=== PATIENT | male | born 1980 | race African-American/Black ===

== ENCOUNTER 2017-05-31 14:30 | Inpatient (IN) | payer OTHER ==
[2017-05-31 17:44] VITALS: BMI 31.8
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
[2017-05-31] MEDS ORDERED: MAGNESIUM HYDROX 2400MG/30ML ORAL SUSPENSION 30 ML CUP PO PRN (19:46)
[2017-05-31] MEDS ORDERED: ACETAMINOPHEN 325 MG TABLET (FP) PO PRN (19:46)
[2017-05-31] MEDS ORDERED: MAGNESIUM CITRATE 300 ML BOTTLE PO PRN (19:46)
[2017-05-31] MEDS ORDERED: chlordiazePOXIDE HCL 25 MG CAPSULE PO PRN (19:46)
[2017-05-31] MEDS ORDERED: MAG HYDROX/AL HYDROX/SIMETH 30 ML UNIT-DOSE CUP PO PRN (19:46)
[2017-05-31] MEDS ORDERED: guaiFENesin/D-METHORPHAN HB 10 ML UNIT-DOSE CUPS PO PRN (19:46)
[2017-05-31] MEDS ORDERED: hydrOXYzine PAMOATE 50 MG CAPSULE (FP) PO PRN (19:46)
[2017-05-31] MEDS ORDERED: P-EPHED 60MG/TRIPROLIDI 2.5MG TABLET PO PRN (19:46)
[2017-05-31] MEDS ORDERED: chlordiazePOXIDE HCL 25 MG CAPSULE PO ONE (19:46)
[2017-05-31] MEDS ORDERED: IBUPROFEN 400 MG TABLET (FP) PO PRN (19:46)
[2017-05-31] MEDS ORDERED: LOPERAMIDE HCL 2 MG CAPSULE PO PRN (19:46)
[2017-05-31] MEDS ORDERED: MENTHOL/PHENOL 1 EACH UD MM PRN (19:46)
[2017-05-31] MEDS ORDERED: ALBUTEROL SO4 18 GM HFA INHALER IH PRN (19:48)
[2017-05-31] MEDS ORDERED: ALBUTEROL SO4 2.5/IPRATROPIUM 0.5 INH SOL 3 ML VIAL.NEB. NEB PRN (19:49)
[2017-05-31] MEDS: MELATONIN 5 MG TABLETS PO SCH (22:27)
[2017-05-31] MEDS: THIAMINE HCL 100 MG TABLET (FP) PO SCH (22:27)
[2017-05-31] MEDS: chlordiazePOXIDE HCL 25 MG CAPSULE PO SCH (22:28)
[2017-06-01 01:48] LABS: URINE APPEARANCE CLEAR; URINE BILIRUBIN NEGATIVE (NEGATIVE); URINE BLOOD 1+ (NEGATIVE); URINE COLOR LTYELLOW; URINE GLUCOSE (UA) NEGATIVE (NEGATIVE); URINE KETONE NEGATIVE (NEGATIVE); URINE LEUK ESTERASE TRACE (NEGATIVE); URINE NITRITE NEGATIVE (NEGATIVE); URINE PROTEIN NEGATIVE (NEGATIVE); URINE UROBILINOGEN NEGATIVE mg/dL (0.2-1.0)
[2017-06-01 02:03] LABS: EPI CELLS RARE /HPF (FEW); URINE HYALINE CAST 2 /lpf; URINE MUCUS RARE
[2017-06-01] MEDS: chlordiazePOXIDE HCL 25 MG CAPSULE PO SCH ×4 (07:20→23:21)
--- NOTE | 2017-06-01 09:15 | CONSULT ---
[facility] Psychiatric Consult - Data Date of interview: 06/01/17 Admission source: [facility] Identifying data: This is 34 years old obese male, single, living with GF, unemployed, with psychiatric hospitalization history, with history od Cocaine, Alcohol and Nicotine dependence, seeking for detox. Substance Abuse History: - Smoking Cessation. Smoking history: Current every day smoker. Have you smoked in the past 12 months: Yes. Aproximately how many cigarettes per day: 30. Hx Chewing Tobacco Use: No. Initiated information on smoking cessation: Yes. 'Breaking Loose' booklet given: 05/31/17. - Substance & Tx. History. Hx Alcohol Use: Yes. Hx Substance Use: Yes. Substance Use Type : Alcohol, Cocaine. Hx Substance Use Treatment: Yes ([facility] 2016). - Substances Abused. Alcohol. Route: Oral. Frequency: Daily. Amount used: 2 PINTS VODKA. Age of first use: 17. Date of Last Use: 05/29/17. Crack. Route: Smoking. Frequency: Daily. Amount used: $50. Age of first use: 23. Date of Last Use: 05/30/17 Medical History: Obesity, Peptic Ulcer , Asthma, Nephrolitiasis history. Psychiatric History: Patient reports history of Schizoaffective disorder, Bipolar disorder with most recent psychiatric admission on 2 weeks ago at [facility] for safety, denies suicidal history, reports taking prior,to admission: Risperdal 2mg po bid. Seroquel 200mg po qhs. Zoloft 50mg poqd Physical/Sexual Abuse/Trauma History: Denies Additional Comment: Risperdal 2mg po bid. Seroquel 200mg po qhs. Zoloft 50mg poqd Mental Status Exam - Mental Status Exam Alert and Oriented to: Person Cognitive Function: Fair Patient Appearance: Unkempt Mood: Sad Affect: Flat Patient Behavior: Sedated Speech Pattern: Delayed Voice Loudness: Mildly Soft/Quiet Thought Process: Circumstantial Thought Disorder: Being Controlled Hallucinations: Denies Suicidal Ideation: Denies Homicidal Ideation: Denies Insight/Judgement: Fair Sleep: Difficulty falling asleep Appetite: Weight gain Muscle strength/Tone: Mild Hypotonicity Gait/Station: Shuffling Additional Comments: Risperdal 2mg po bid. Seroquel 200mg po qhs. Zoloft 50mg poqd Psychiatric Findings - Problem List ([place] 1, 2,3) (1) Drug-induced mood disorder Current Visit: Yes Status: Acute (2) Alcohol dependence with withdrawal Current Visit: Yes Status: Acute Qualifiers: Complication of substance-induced condition: uncomplicated Qualified Code(s ): F10.230 - Alcohol dependence with withdrawal, uncomplicated (3) Nicotine dependence Current Visit: Yes Status: Acute Qualifiers: Nicotine product type: cigarettes (4) Cocaine dependence Current Visit: Yes Status: Chronic (5) Schizoaffective disorder Current Visit: No Status: Acute - Initial Treatment Plan Initial Treatment Plan: Risperdal 2mg po bid. Seroquel 200mg po qhs. Zoloft 50mg poqd
--- NOTE | 2017-06-01 09:59 | EKG ---
Test Reason : Blood Pressure : / mmHG Vent. Rate : 067 BPM Atrial Rate : 067 BPM P-R Int : 132 ms QRS Dur : 092 ms QT Int : 396 ms P-R-T Axes : 022 051 032 degrees QTc Int : 418 ms NORMAL SINUS RHYTHM MINIMAL VOLTAGE CRITERIA FOR LVH, MAY BE NORMAL VARIANT NONSPECIFIC ST ABNORMALITY ABNORMAL ECG NO PREVIOUS ECGS AVAILABLE Confirmed by EMILY LINDSEY MD ([id number]) on 06/01/2017 9:58:33 AM Referred By: Confirmed By:EMILY LINDSEY MD
--- NOTE | 2017-06-01 10:02 | PN ---
[facility] CIWA - CIWA Score Nausea/Vomitin-Mild Nausea/No Vomiting Muscle Tremors: 4-Moderate,w/Arms Extend Anxiety: 3 Agitation: 3 Paroxysmal Sweats: 1-Minimal Palms Moist Orientation: 0-Oriented Tacttile Disturbances: 1-Very Mild Itch/Numbness Auditory Disturbances: 0-None Visual Disturbances: 0-None Headache: 0-None Present CIWA-Ar Total Score: 13 [facility] Progress Note (SOAP) Subjective: sweat tremor restlessness anxiety sleeplessness irritable Objective: 06/01/17 10:01 Vital Signs Temperature 97.9 F 06/01/17 06:00 Pulse Rate 92 H 06/01/17 06:00 Respiratory Rate 18 06/01/17 06:00 Blood Pressure 119/70 06/01/17 06:00 O2 Sat by Pulse Oximetry (%) Laboratory Last Values Urine Color Ltyellow 05/31/17 22:43 Urine Appearance Clear 05/31/17 22:43 Urine pH 7.0 (5.0-8.0) 05/31/17 22:43 Ur Specific [place] 1.009 (1.001-1.035) 05/31/17 22:43 Urine Protein Negative (NEGATIVE) 05/31/17 22:43 Urine Glucose (UA) Negative (NEGATIVE) 05/31/17 22:43 Urine Ketones Negative (NEGATIVE) 05/31/17 22:43 Urine Blood 1+ (NEGATIVE) H 05/31/17 22:43 Urine Nitrite Negative (NEGATIVE) 05/31/17 22:43 Urine Bilirubin Negative (NEGATIVE) 05/31/17 22:43 Urine Urobilinogen Negative mg/dL (0.2-1.0) 05/31/17 22:43 Ur Leukocyte Esterase Trace (NEGATIVE) 05/31/17 22:43 Urine WBC (Auto) 1 /hpf (3-5) 05/31/17 22:43 Urine RBC (Auto) 3 /hpf (0-3) 05/31/17 22:43 Ur Epithelial Cells Rare /HPF (FEW) 05/31/17 22:43 Hyaline Casts 2 /lpf 05/31/17 22:43 Urine Mucus Rare 05/31/17 22:43 lab noted Assessment: 06/01/17 10:02 withdrawal sx Plan: continue detox
[2017-06-01 10:17] LABS: HEMATOCRIT 39.9 % (35.4-49); HEMOGLOBIN 13.2 GM/dL (11.7-16.9); MEAN CELL VOLUME 87.9 fl (80-96); MEAN PLT VOLUME 7.7 fl (7.5-11.1); PLATELET COUNT 306 K/MM3 (134-434); RBC 4.54 M/mm3 (4.00-5.60); RDW 17.2 % (11.9-15.9); WHITE BLOOD COUNT 5.2 K/mm3 (4.0-10.0)
[2017-06-01] MEDS: PRENATAL VITAMINS W/ FOLIC ACID TABLET (FP) PO SCH (10:31)
[2017-06-01] MEDS: SERTRALINE HCL 50 MG TABLET (FP) PO SCH (10:31)
[2017-06-01] MEDS: PANTOPRAZOLE 40 MG TABLET (FP) PO SCH (10:31)
[2017-06-01] MEDS: risperiDONE 2 MG TABLET PO SCH ×2 (10:31→23:22)
[2017-06-01] MEDS: NICOTINE 21 MG/24 HOURS TOPICAL PATCH TD SCH (10:32)
[2017-06-01 12:42] LABS: ALBUMIN 3.3 g/dl (3.4-5.0); ANION GAP 12 (8-16); BLOOD UREA NITROGEN 14 mg/dL (7-18); CALCIUM 8.8 mg/dL (8.5-10.1); CHLORIDE 107 mmol/L (98-107); CO2 24 mmol/L (21-32); CREATININE 1.2 mg/dL (0.7-1.3); GLUCOSE,RANDOM 82 mg/dL (74-106); POTASSIUM 4.4 mmol/L (3.5-5.1); SGOT/AST 16 U/L (15-37); SGPT/ALT 17 U/L (12-78); SODIUM 143 mmol/L (136-145)
[2017-06-01 12:44] LABS: ALK PHOS 83 U/L (45-117); BILIRUBIN,TOTAL 0.4 mg/dL (0.2-1.0); TOT PROT 6.8 g/dl (6.4-8.2)
[2017-06-01] MEDS: MELATONIN 5 MG TABLETS PO SCH (23:21)
[2017-06-01] MEDS: QUEtiapine FUMARATE 200 MG TABLET PO SCH (23:22)
[2017-06-01] MEDS: THIAMINE HCL 100 MG TABLET (FP) PO SCH (23:23)
[2017-06-02] MEDS: chlordiazePOXIDE HCL 25 MG CAPSULE PO SCH ×3 (05:55→17:23)
--- NOTE | 2017-06-02 10:30 | PN ---
[facility] CIWA - CIWA Score Nausea/Vomitin-Mild Nausea/No Vomiting Muscle Tremors: 4-Moderate,w/Arms Extend Anxiety: 3 Agitation: 3 Paroxysmal Sweats: 1-Minimal Palms Moist Orientation: 0-Oriented Tacttile Disturbances: 0-None Auditory Disturbances: 1-Very Mild Visual Disturbances: 0-None Headache: 0-None Present CIWA-Ar Total Score: 13 S Progress Note (SOAP) Subjective: gji distress sweat tremor mild noise heard not threaten, anxiety restlessness trouble to fall a sleep Objective: 06/02/17 10:29 Vital Signs Temperature 98.1 F 06/02/17 06:43 Pulse Rate 100 H 06/02/17 06:43 Respiratory Rate 18 06/02/17 06:43 Blood Pressure 118/87 06/02/17 06:43 O2 Sat by Pulse Oximetry (%) Laboratory Last Values WBC 5.2 K/mm3 (4.0-10.0) 06/01/17 07:00 RBC 4.54 M/mm3 (4.00-5.60) 06/01/17 07:00 Hgb 13.2 GM/dL (11.7-16.9) 06/01/17 07:00 Hct 39.9 % (35.4-49) 06/01/17 07:00 MCV 87.9 fl (80-96) 06/01/17 07:00 MCH 29.0 pg (25.7-33.7) 06/01/17 07:00 MCHC 33.0 g/dl (32.0-35.9) 06/01/17 07:00 RDW 17.2 % (11.9-15.9) H 06/01/17 07:00 Plt Count 306 K/MM3 (134-434) D 06/01/17 07:00 MPV 7.7 fl (7.5-11.1) D 06/01/17 07:00 Sodium 143 mmol/L (136-145) 06/01/17 07:00 Potassium 4.4 mmol/L (3.5-5.1) D 06/01/17 07:00 Chloride 107 mmol/L (98-107) 06/01/17 07:00 Carbon Dioxide 24 mmol/L (21-32) 06/01/17 07:00 Anion Gap 12 (8-16) 06/01/17 07:00 BUN 14 mg/dL (7-18) D 06/01/17 07:00 Creatinine 1.2 mg/dL (0.7-1.3) 06/01/17 07:00 Creat Clearance w eGFR > 60 (>60) 06/01/17 07:00 Random Glucose 82 mg/dL (74-106) D 06/01/17 07:00 Calcium 8.8 mg/dL (8.5-10.1) 06/01/17 07:00 Total Bilirubin 0.4 mg/dL (0.2-1.0) D 06/01/17 07:00 AST 16 U/L (15-37) 06/01/17 07:00 ALT 17 U/L (12-78) 06/01/17 07:00 Alkaline Phosphatase 83 U/L (45-117) D 06/01/17 07:00 Total Protein 6.8 g/dl (6.4-8.2) 06/01/17 07:00 Albumin 3.3 g/dl (3.4-5.0) L 06/01/17 07:00 Urine Color Ltyellow 05/31/17 22:43 Urine Appearance Clear 05/31/17 22:43 Urine pH 7.0 (5.0-8.0) 05/31/17 22:43 Ur Specific [place] 1.009 (1.001-1.035) 05/31/17 22:43 Urine Protein Negative (NEGATIVE) 05/31/17 22:43 Urine Glucose (UA) Negative (NEGATIVE) 05/31/17 22:43 Urine Ketones Negative (NEGATIVE) 05/31/17 22:43 Urine Blood 1+ (NEGATIVE) H 05/31/17 22:43 Urine Nitrite Negative (NEGATIVE) 05/31/17 22:43 Urine Bilirubin Negative (NEGATIVE) 05/31/17 22:43 Urine Urobilinogen Negative mg/dL (0.2-1.0) 05/31/17 22:43 Ur Leukocyte Esterase Trace (NEGATIVE) 05/31/17 22:43 Urine WBC (Auto) 1 /hpf (3-5) 05/31/17 22:43 Urine RBC (Auto) 3 /hpf (0-3) 05/31/17 22:43 Ur Epithelial Cells Rare /HPF (FEW) 05/31/17 22:43 Hyaline Casts 2 /lpf 05/31/17 22:43 Urine Mucus Rare 05/31/17 22:43 RPR Titer Nonreactive (NONREACTIVE) 06/01/17 07:00 HIV 1&2 Antibody Screen Negative 06/01/17 07:00 HIV P24 Antigen Negative 06/01/17 07:00 lab noted Assessment: 06/02/17 10:30 withdrawal sx Plan: continue detox
[2017-06-02] MEDS: PRENATAL VITAMINS W/ FOLIC ACID TABLET (FP) PO SCH (10:58)
[2017-06-02] MEDS: SERTRALINE HCL 50 MG TABLET (FP) PO SCH (10:59)
[2017-06-02] MEDS: PANTOPRAZOLE 40 MG TABLET (FP) PO SCH (10:59)
[2017-06-02] MEDS: risperiDONE 2 MG TABLET PO SCH ×2 (10:59→22:42)
[2017-06-02] MEDS: NICOTINE 21 MG/24 HOURS TOPICAL PATCH TD SCH (10:59)
[2017-06-02] MEDS: THIAMINE HCL 100 MG TABLET (FP) PO SCH (22:42)
[2017-06-02] MEDS: chlordiazePOXIDE 5 MG CAPSULE PO SCH (22:43)
[2017-06-02] MEDS: QUEtiapine FUMARATE 200 MG TABLET PO SCH (22:43)
[2017-06-02] MEDS: MELATONIN 5 MG TABLETS PO SCH (23:13)
[2017-06-03] MEDS: chlordiazePOXIDE 5 MG CAPSULE PO SCH ×3 (06:43→17:13)
[2017-06-03] MEDS: PANTOPRAZOLE 40 MG TABLET (FP) PO SCH (11:29)
[2017-06-03] MEDS: PRENATAL VITAMINS W/ FOLIC ACID TABLET (FP) PO SCH (11:29)
[2017-06-03] MEDS: risperiDONE 2 MG TABLET PO SCH ×2 (11:30→22:30)
[2017-06-03] MEDS: SERTRALINE HCL 50 MG TABLET (FP) PO SCH (11:30)
[2017-06-03] MEDS: NICOTINE 21 MG/24 HOURS TOPICAL PATCH TD SCH (11:31)
--- NOTE | 2017-06-03 11:44 | PN ---
[facility] Progress Note (SOAP) Subjective: interrupted sleep, sweats Objective: 06/03/17 11:42 Vital Signs Temperature 98.3 F 06/03/17 09:42 Pulse Rate 55 L 06/03/17 09:42 Respiratory Rate 16 06/03/17 09:42 Blood Pressure 90/51 06/03/17 09:42 O2 Sat by Pulse Oximetry (%) Laboratory Tests 05/31/17 06/01/17 06/01/17 22:43 07:00 07:00 WBC 5.2 RBC 4.54 Hgb 13.2 Hct 39.9 MCV 87.9 MCH 29.0 MCHC 33.0 RDW 17.2 H Plt Count 306 D MPV 7.7 D Sodium Potassium Chloride Carbon Dioxide Anion Gap BUN Creatinine Creat Clearance w eGFR Random Glucose Calcium Total Bilirubin AST ALT Alkaline Phosphatase Total Protein Albumin Urine Color Ltyellow Urine Appearance Clear Urine pH 7.0 Ur Specific [place] 1.009 Urine Protein Negative Urine Glucose (UA) Negative Urine Ketones Negative Urine Blood 1+ H Urine Nitrite Negative Urine Bilirubin Negative Urine Urobilinogen Negative Ur Leukocyte Esterase Trace Urine WBC (Auto) 1 Urine RBC (Auto) 3 Ur Epithelial Cells Rare Hyaline Casts 2 Urine Mucus Rare RPR Titer HIV 1&2 Antibody Screen Negative HIV P24 Antigen Negative 06/01/17 06/01/17 07:00 07:00 WBC RBC Hgb Hct MCV MCH MCHC RDW Plt Count MPV Sodium 143 Potassium 4.4 D Chloride 107 Carbon Dioxide 24 Anion Gap 12 BUN 14 D Creatinine 1.2 Creat Clearance w eGFR > 60 Random Glucose 82 D Calcium 8.8 Total Bilirubin 0.4 D AST 16 ALT 17 Alkaline Phosphatase 83 D Total Protein 6.8 Albumin 3.3 L Urine Color Urine Appearance Urine pH Ur Specific [place] Urine Protein Urine Glucose (UA) Urine Ketones Urine Blood Urine Nitrite Urine Bilirubin Urine Urobilinogen Ur Leukocyte Esterase Urine WBC (Auto) Urine RBC (Auto) Ur Epithelial Cells Hyaline Casts Urine Mucus RPR Titer Nonreactive HIV 1&2 Antibody Screen HIV P24 Antigen pt aox3 in nad ambulating Assessment: 06/03/17 11:43 withdrawal sx's Plan: cont. detox increase fluids
[2017-06-03] MEDS: NICOTINE POLACRILEX 4 MG GUM BC PRN ×2 (18:45→20:02)
[2017-06-03] MEDS: chlordiazePOXIDE HCL 10 MG CAPSULE PO SCH (22:30)
[2017-06-03] MEDS: QUEtiapine FUMARATE 200 MG TABLET PO SCH (22:30)
[2017-06-03] MEDS: THIAMINE HCL 100 MG TABLET (FP) PO SCH (22:30)
[2017-06-03] MEDS: MELATONIN 5 MG TABLETS PO SCH (22:30)
[2017-06-04] MEDS: chlordiazePOXIDE HCL 10 MG CAPSULE PO SCH (07:19)
[2017-06-04] MEDS: NICOTINE POLACRILEX 4 MG GUM BC PRN (08:57)
[2017-06-04 09:59] VITALS: BP 131/75; PULSE 86; TEMP 98.8
--- NOTE | 2017-06-04 16:15 | PN ---
S Progress Note (SOAP) Subjective: feels okay no new complaint Objective: 06/04/17 16:13 A & O x 3 gait steady no acute distress noted Vital Signs Temperature 98.8 F 06/04/17 09:59 Pulse Rate 86 06/04/17 09:59 Respiratory Rate 16 06/04/17 09:59 Blood Pressure 131/75 06/04/17 09:59 O2 Sat by Pulse Oximetry (%) Assessment: 06/04/17 16:14 detox successfully completed Plan: for discharge
--- NOTE | 2017-06-04 16:19 | DS ---
[facility] Detox Discharge Summary Admission Date: 05/31/17 Discharge Date: 06/04/17 - History Pertinent Past History: peptic ulcer disease bronchial asthma - Physical Exam Results Vital Signs: Vital Signs Temperature 98.8 F 06/04/17 09:59 Pulse Rate 86 06/04/17 09:59 Respiratory Rate 16 06/04/17 09:59 Blood Pressure 131/75 06/04/17 09:59 O2 Sat by Pulse Oximetry (%) Pertinent Admission Physical Exam Findings: withdrawal sx - Treatment Hospital Course: Detox Protocol Followed, Detoxed Safely, Responded well, Discharged Condition Good ([facility]), Rehab Referral Accepted Patient has Accepted a Rehab Referral to: [facility] - Medication Discharge Medications: Ambulatory Orders Quetiapine Fumarate [Seroquel -] 200 mg PO HS #30 tablet 05/03/15 Quetiapine Fumarate [Seroquel -] 200 mg PO HS #30 tablet 06/01/17 Risperidone [Risperdal -] 2 mg PO BID #60 tablet 06/01/17 Sertraline HCl [Zoloft -] 50 mg PO DAILY #30 tablet 06/01/17 Albuterol Sulfate Inhaler - [Ventolin HFA Inhaler -] 2 puff IH Q4H PRN #1 inhaler 06/03/17 Pantoprazole Sodium [Protonix -] 40 mg PO DAILY #30 tablet.ec 06/03/17 Albuterol Sulfate Inhaler - [Ventolin HFA Inhaler -] 2 inh PO Q4H PRN #1 inhaler 06/04/17 Pantoprazole Sodium [Protonix -] 40 mg PO DAILY #30 tablet.ec 06/04/17 - Diagnosis (1) Alcohol dependence, uncomplicated Status: Acute (2) Cocaine dependence Status: Chronic (3) Nicotine dependence Status: Chronic Qualifiers: Nicotine product type: cigarettes (4) Obesity Status: Chronic Qualifiers: Obesity type: unspecified obesity type Body mass index: BMI 31.0-31.9 (5) Peptic ulcer disease Status: Chronic (6) depression Status: Chronic - AMA Did Patient Leave Against Medical Advice: No
== END 2017-06-04 11:18 | disposition home or self-care (01) | DRG 774 ==
LOC: YASAS 14:30 → Y6N 18:37
PROVIDERS: ADMIT Internal Medicine; ATTEND Internal Medicine
PROC: HZ2ZZZZ Detoxification Services for Substance Abuse Treatment (ICD-10-PCS; principal; 2017-05-31)
DX: F10.230 Alcohol dependence with withdrawal, uncomplicated (principal); F14.20 Cocaine dependence, uncomplicated; F17.210 Nicotine dependence, cigarettes, uncomplicated; F31.9 Bipolar disorder, unspecified; F41.9 Anxiety disorder, unspecified; F19.24 Other psychoactive substance dependence with psychoactive substance-induced mood disorder; F25.9 Schizoaffective disorder, unspecified; E66.9 Obesity, unspecified; Z68.31 Body mass index [BMI] 31.0-31.9, adult; Z87.440 Personal history of urinary (tract) infections; Z87.442 Personal history of urinary calculi; Z89.422 Acquired absence of other left toe(s); Z89.421 Acquired absence of other right toe(s)
CPT/HCPCS: 36415; 80053; 81003; 81015; 85027; 86593; 87389; 93005; 93010

== ENCOUNTER 2023-11-23 13:34 | Inpatient (IN) | payer OTHER ==
[2023-11-23] MEDS ORDERED: ALBUTEROL SO4 HFA INHALER IH PRN (14:35)
[2023-11-23] MEDS ORDERED: MAGNESIUM HYDROX 2400MG/30ML ORAL SUSPENSION 30 ML CUP PO PRN (14:46)
[2023-11-23] MEDS ORDERED: NICOTINE POLACRILEX 2 MG LOZENGE BC PRN (14:46)
[2023-11-23] MEDS ORDERED: BENZOCAINE/MENTHOL (CHLORASEPTIC ) LOZENGE MM PRN (14:46)
[2023-11-23] MEDS ORDERED: hydrOXYzine PAMOATE 25 MG CAPSULE (FP) PO PRN (14:46)
[2023-11-23] MEDS ORDERED: LOPERAMIDE HCL 2 MG CAPSULE PO PRN (14:46)
[2023-11-23] MEDS ORDERED: ACETAMINOPHEN 325 MG TABLET (FP) PO PRN (14:46)
[2023-11-23] MEDS ORDERED: BENZONATATE 200 MG CAPSULE PO PRN (14:46)
[2023-11-23] MEDS ORDERED: MAG HYDROX/AL HYDROX/SIMETH 30 ML UNIT-DOSE CUP PO PRN (14:46)
[2023-11-23] MEDS ORDERED: POLYETHYLENE GLYCOL (HEALTHYLAX) 3350 17 GM PACKET PO PRN (14:46)
[2023-11-23] MEDS ORDERED: guaiFENesin 600 MG TABLET.ER (FP) PO PRN (14:46)
[2023-11-23 15:21] VITALS: BMI 26.4
[2023-11-23] MEDS ORDERED: IBUPROFEN 600 MG TABLET (FP) PO ONE (17:22)
[2023-11-23] MEDS: IBUPROFEN 600 MG TABLET (FP) PO PRN (17:25)
[2023-11-23 18:10] VITALS: RESP 18
[2023-11-23] MEDS: TUBERCULIN PPD 5 TU/0.1ML SYRINGE (IN PATIENT USE ONLY) ID ONE (18:13)
[2023-11-23] MEDS: THIAMINE 100 MG TABLET PO SCH (23:05)
[2023-11-23] MEDS: MELATONIN 5 MG TABLETS PO SCH (23:05)
[2023-11-24] MEDS: NICOTINE POLACRILEX 2 MG GUM BUC PRN (05:05)
[2023-11-24] MEDS: PANTOPRAZOLE 40 MG TABLET PO SCH (06:13)
[2023-11-24] MEDS: PRENATAL VITAMINS W/ FOLIC ACID TABLET (FP) PO SCH (09:33)
[2023-11-24] MEDS: QUEtiapine FUMARATE 100 MG TABLET (FP) PO SCH (11:36)
[2023-11-24] MEDS: QUEtiapine FUMARATE 100 MG TABLET (FP) PO ONE (11:38)
[2023-11-24 11:53] VITALS: BP 116/78; PULSE 77; TEMP 97.4
[2023-11-24 12:20] LABS: HEMATOCRIT 32.7 % (35.4-49); HEMOGLOBIN 10.6 GM/dL (11.7-16.9); MCHC 32.5 g/dl (32.0-35.9); MEAN CELL VOLUME 83.1 fl (80-96); PLATELET COUNT 396 10^3/uL (134-434); RBC 3.93 M/mm3 (4.00-5.60); RDW 19.4 % (11.9-15.9); WHITE BLOOD COUNT 6.2 K/mm3 (4.0-10.0)
[2023-11-24 12:25] LABS: POTASSIUM 4.5 mmol/L (3.5-5.1)
[2023-11-24 12:29] LABS: ALBUMIN 3.2 g/dl (3.4-5.0); BLOOD UREA NITROGEN 17.4 mg/dL (7-18); CALCIUM 9.2 mg/dL (8.5-10.1)
[2023-11-24 12:32] LABS: CREATININE 1.2 mg/dL (0.55-1.3)
[2023-11-24 12:35] LABS: BILIRUBIN,TOTAL 0.3 mg/dL (0.2-1); TOT PROT 7.2 g/dl (6.4-8.2)
[2023-11-24 12:57] LABS: SYPHILIS W/ RPR CONF NON-REACTIVE (NONREACTIVE)
== END 2023-11-25 08:05 | disposition short-term general hospital (02) | DRG 772 ==
LOC: YASAS 13:34 → Y5N 16:41
PROVIDERS: ADMIT Psychiatry & Neurology Pain Medicine; ATTEND Psychiatry & Neurology Pain Medicine
PROC: HZ42ZZZ Group Counseling for Substance Abuse Treatment, Cognitive-Behavioral (ICD-10-PCS; principal; 2023-11-23)
DX: F14.20 Cocaine dependence, uncomplicated (principal); F11.20 Opioid dependence, uncomplicated; F17.210 Nicotine dependence, cigarettes, uncomplicated; F25.9 Schizoaffective disorder, unspecified; F19.24 Other psychoactive substance dependence with psychoactive substance-induced mood disorder; I10 Essential (primary) hypertension; J45.909 Unspecified asthma, uncomplicated; K21.9 Gastro-esophageal reflux disease without esophagitis; E11.9 Type 2 diabetes mellitus without complications; Z79.4 Long term (current) use of insulin; M86.8X7 Other osteomyelitis, ankle and foot; L97.228 Non-pressure chronic ulcer of left calf with other specified severity; L98.498 Non-pressure chronic ulcer of skin of other sites with other specified severity; L08.89 Other specified local infections of the skin and subcutaneous tissue; R26.89 Other abnormalities of gait and mobility; Z99.89 Dependence on other enabling machines and devices; Z88.2 Allergy status to sulfonamides; Z88.8 Allergy status to other drugs, medicaments and biological substances; Z56.0 Unemployment, unspecified; Z59.00 Homelessness unspecified
CPT/HCPCS: 36415; 80053; 80305; 80307; 82962; 85027; 86780; 86803; 87811; 93005; 93010

== ENCOUNTER 2023-11-24 13:16 | Inpatient (IN) | payer OTHER ==
[2023-11-24] MEDS ORDERED: BUPRENORPHINE/NALOXONE 2 MG/0.5 MG FILM PACKET ONE ×2 (14:48→16:57)
[2023-11-24] MEDS ORDERED: NICOTINE 21 MG/24 HOURS TOPICAL PATCH ONE (14:49)
[2023-11-24] MEDS ORDERED: PIPERACILLIN/TAZOB 4.5 GM 4.5 GM/100 ML BAG IVPB ONE (14:49)
[2023-11-24] MEDS ORDERED: IBUPROFEN 400 MG TABLET (FP) PO ONE (14:49)
[2023-11-24] MEDS ORDERED: VANCOMYCIN 1 GRAM (PRE-DOCKED) 1,000 MG/250 ML BAG IVPB ONE (14:50)
[2023-11-24] MEDS: IBUPROFEN 600 MG TABLET (FP) PO ONE (14:56)
[2023-11-24] MEDS: NICOTINE 21 MG/24 HOURS TOPICAL PATCH TD SCH (14:58)
[2023-11-24] MEDS: BUPRENORPHINE/NALOXONE 4 MG/1 MG FILM PACKET SL PRN (14:58)
[2023-11-24 15:30] LABS: BASO % 0.9 % (0-2.0); EOS % 1.4 % (0-4.5); HEMATOCRIT 29.9 % (35.4-49); HEMOGLOBIN 9.8 GM/dL (11.7-16.9); LYMPH % 37.2 % (8-40); MCH 26.7 pg (25.7-33.7); MCHC 32.7 g/dl (32.0-35.9); MEAN CELL VOLUME 81.6 fl (80-96); MEAN PLT VOLUME 7.2 fl (7.5-11.1); MONO % 5.7 % (3.8-10.2); NEUT % 54.8 % (42.8-82.8); PLATELET COUNT 346 10^3/uL (134-434); RBC 3.67 M/mm3 (4.00-5.60); RDW 19.2 % (11.9-15.9); WHITE BLOOD COUNT 5.2 K/mm3 (4.0-10.0)
[2023-11-24 15:58] LABS: POTASSIUM 4.1 mmol/L (3.5-5.1)
[2023-11-24 16:00] LABS: CALCIUM 9.2 mg/dL (8.5-10.1)
[2023-11-24 16:01] LABS: ALBUMIN 3.1 g/dl (3.4-5.0); BLOOD UREA NITROGEN 17.3 mg/dL (7-18)
[2023-11-24 16:04] LABS: CREATININE 1.1 mg/dL (0.55-1.3)
[2023-11-24 16:05] LABS: BILIRUBIN,TOTAL 0.2 mg/dL (0.2-1); TOT PROT 6.8 g/dl (6.4-8.2)
[2023-11-24 16:20] LABS: ERYTHROCYTE SEDIMENTATION RATE 31 mm/hr (0-10)
[2023-11-24] MEDS: BUPRENORPHINE/NALOXONE 4 MG/1 MG FILM PACKET SL ONE (16:59)
[2023-11-24] MEDS: PIPERACILLIN/TAZOB 4.5 GM 4.5 GM in DEXTROSE 5%-WATER 100 ML IVPB ONE (18:02)
[2023-11-24] MEDS: VANCOMYCIN 1,000 MG in DEXTROSE 5%-WATER - 250 ML IVPB ONE (18:20)
[2023-11-24] MEDS: NICOTINE POLACRILEX 4 MG GUM BUC PRN (19:25)
[2023-11-24] MEDS ORDERED: THIAMINE 100 MG TABLET ONE (20:09)
[2023-11-24] MEDS: THIAMINE 100 MG TABLET PO SCH (20:26)
[2023-11-24 22:01] LABS: HIV INTERPRETATION NEGATIVE (NEGATIVE)
[2023-11-24] MEDS: QUEtiapine FUMARATE 200 MG TABLET PO SCH (23:33)
[2023-11-24] MEDS: BUPRENORPHINE/NALOXONE 8 MG/2 MG FILM PACKET SL SCH (23:33)
[2023-11-24] MEDS: DIVALPROEX SODIUM 250 MG TABLET E.C. PO SCH (23:33)
[2023-11-24] MEDS: INSULIN ASPART SLIDING SCALE (NOVOLOG) 1 VIAL SQ SCH (23:38)
[2023-11-25] MEDS ORDERED: LORazepam 2 MG/ML SDV VIAL IVPUSH PRN (00:21)
[2023-11-25 00:24] VITALS: BMI 29.3
[2023-11-25] MEDS: LORazepam 2 MG/ML SDV VIAL IVPUSH PRN (00:38)
[2023-11-25] MEDS ORDERED: PIPERACILLIN/TAZOB 4.5 GM 4.5 GM in DEXTROSE 5%-WATER 100 ML IVPB SCH (02:00)
[2023-11-25] MEDS: PIPERACILLIN/TAZOB 4.5 GM 4.5 GM in DEXTROSE 5%-WATER 100 ML IVPB SCH (02:06)
[2023-11-25] MEDS: VANCOMYCIN/WATER 1250 MG 1,250 MG/250 ML BAG IVPB SCH (05:51)
[2023-11-25] MEDS ORDERED: VANCOMYCIN/WATER 1250 MG 1,250 MG/250 ML BAG IVPB SCH (06:00)
[2023-11-25] MEDS: traZODone HCL 100 MG TABLET (FP) PO SCH (09:07)
[2023-11-25] MEDS: FOLIC ACID 1 MG TABLET (FP) PO SCH (09:07)
[2023-11-25] MEDS: MULTIVITAMINS (DAILY MVI) TABLET (FP) PO SCH (09:07)
[2023-11-25] MEDS: OLANZapine 5 MG TABLET PO SCH (09:07)
[2023-11-25] MEDS: ENOXAPARIN NA (PORCINE) 40 MG/0.4 ML DISP.SYRIN SQ SCH (09:08)
[2023-11-25 10:39] LABS: HEMATOCRIT 31.2 % (35.4-49); MCH 26.7 pg (25.7-33.7); MCHC 32.2 g/dl (32.0-35.9); MEAN CELL VOLUME 82.9 fl (80-96); MEAN PLT VOLUME 7.6 fl (7.5-11.1); PLATELET COUNT 330 10^3/uL (134-434); RBC 3.77 M/mm3 (4.00-5.60); RDW 19.3 % (11.9-15.9); WHITE BLOOD COUNT 4.7 K/mm3 (4.0-10.0)
[2023-11-25 11:13] LABS: POTASSIUM 4.3 mmol/L (3.5-5.1)
[2023-11-25 11:17] LABS: ALBUMIN 2.9 g/dl (3.4-5.0)
[2023-11-25 11:19] LABS: BLOOD UREA NITROGEN 14.1 mg/dL (7-18)
[2023-11-25 11:20] LABS: ERYTHROCYTE SEDIMENTATION RATE 33 mm/hr (0-10)
[2023-11-25 11:21] LABS: BILIRUBIN,DIRECT 0.1 mg/dL (0.0-0.2); MAGNESIUM 1.9 mg/dL (1.8-2.4)
[2023-11-25 11:22] LABS: BILIRUBIN,TOTAL 0.3 mg/dL (0.2-1); TOT PROT 6.5 g/dl (6.4-8.2)
[2023-11-25 11:23] LABS: CREATININE 1.2 mg/dL (0.55-1.3); PHOSPHOROUS 3.3 mg/dL (2.5-4.9)
[2023-11-25 11:24] LABS: BILIRUBIN,TOTAL 0.4 mg/dL (0.2-1); TOT PROT 6.6 g/dl (6.4-8.2)
[2023-11-25] MEDS: ACETAMINOPHEN 1000 MG/100 ML BAG IVPB ONE (20:28)
[2023-11-26] MEDS: ACETAMINOPHEN 1000 MG/100 ML BAG IVPB PRN (06:39)
[2023-11-26] MEDS: PANTOPRAZOLE 40 MG TABLET PO ONE (08:45)
[2023-11-26 10:52] LABS: CHOLESTEROL 132 mg/dL (50-200)
[2023-11-26 10:54] LABS: LDL CHOLESTEROL (ONLY SJRH) 67 mg/dL (5-100)
[2023-11-26 10:55] LABS: HDL CHOLESTEROL 53 mg/dL (40-60)
[2023-11-26] MEDS: ACETAMINOPHEN 500 MG TABLET (FP) PO PRN (15:42)
[2023-11-26 22:51] VITALS: RESP 18
[2023-11-27] MEDS ORDERED: LORazepam 2 MG/ML SDV VIAL IVPUSH PRN (09:47)
[2023-11-27] MEDS: COLLAGENASE CLOSTRIDIUM HIST. 30 GRAMS TUBE TP SCH (18:00)
[2023-11-29 07:55] VITALS: TEMP 98.2
[2023-11-29 11:23] VITALS: BP 96/65; PULSE 81
== END 2023-11-29 11:30 | disposition left against medical advice (07) | DRG 770 ==
LOC: JER 13:16 → JERBED 17:17 → J7W 23:03
PROVIDERS: ADMIT Internal Medicine; ATTEND Nurse Practitioner
DX: F11.23 Opioid dependence with withdrawal (principal); F14.20 Cocaine dependence, uncomplicated; I11.0 Hypertensive heart disease with heart failure; I50.22 Chronic systolic (congestive) heart failure; E11.621 Type 2 diabetes mellitus with foot ulcer; L97.929 Non-pressure chronic ulcer of unspecified part of left lower leg with unspecified severity; L97.919 Non-pressure chronic ulcer of unspecified part of right lower leg with unspecified severity; L97.318 Non-pressure chronic ulcer of right ankle with other specified severity; M86.672 Other chronic osteomyelitis, left ankle and foot; M86.671 Other chronic osteomyelitis, right ankle and foot; F10.20 Alcohol dependence, uncomplicated; I87.8 Other specified disorders of veins
CPT/HCPCS: 36415; 73590-TC-LT-FY; 73590-TC-RT-FY; 73610-TC-LT-FY; 73610-TC-RT-FY; 73630-TC-LT; 73630-TC-RT-FY; 80053; 80061; 80076; 82607; 82746; 82962; 83036; 83735; 84100; 84443; 85025; 85027; 85651; 86140; 86803; 87040; 87081; 87389; 93306-TC; 99285-25; J0131